=== PATIENT | male | born 1995 | race African-American/Black ===

== ENCOUNTER 2023-09-24 00:16 | Emergency (ER) | payer BC, SELFPAY ==
[2023-09-24 00:37] VITALS: BP 113/63; PULSE 81; RESP 16; TEMP 37.1; O2SAT 99; BMI 21.3
--- NOTE | 2023-09-24 01:09 | PC.NURSE ---
laceration, above left eye, laceration clean, bleeding controlled.
--- NOTE | 2023-09-24 01:36 | PC.NURSE ---
provider into assess and suture pt.
--- NOTE | 2023-09-24 01:40 | ED.WOUNDLAC ---
HPI - Wound/Laceration General Chief Complaint: Wound/Laceration Stated Complaint: lac on eyebrow Time Seen by Provider: 09/24/23 00:58 Source: patient Mode of arrival: ambulatory History of Present Illness HPI narrative: 27-year-old male who was walking his dog tripped going up the stairs and struck the left side of his head on the wooden step, denies any loss of consciousness. Related Data Allergies Allergy/AdvReac Type Severity Reaction Status Date / Time No Known Allergies Allergy Unverified 09/24/23 00:36 Review of Systems Review of Systems: Pertinent positives and negatives as stated in [facility] Past Medical History Source: nursing notes reviewed Physical Exam Vital Signs: Vital Signs: Last Vital Signs Temp 98.8 F 09/24/23 00:37 Pulse 81 09/24/23 00:37 Resp 16 09/24/23 00:37 BP 113/63 09/24/23 00:37 Pulse Ox 99 09/24/23 00:37 O2 Del Method Room Air 09/24/23 00:37 BMI result Body Mass Index 21.3 VITAL SIGNS: Reviewed. GENERAL: Well developed, well nourished, in no acute distress. HEAD: Normocephalic/atraumatic EYES: PERRLA, EOMI, 2 cm laceration to the superior aspect of the left upper lid, hemostatic EARS: Ext canals without abnormality LUNGS: Normal breath sounds. No adventitious sounds or accessory muscle use. SpO2<99> CARDIOVASCULAR: Regular rate and rhythm without noted murmurs ABDOMEN: Soft, non-tender, non-distended with bowel sounds. MUSCULOSKELETAL: No tenderness, deformities, or effusions noted on gross inspection. EXTREMITIES: No cyanosis, clubbing or edema. SKIN: Inspection of the skin reveals no rashes NEUROLOGIC: Alert and oriented x 4. Strength and sensation to light touch were grossly intact x 4. Medical Decision Making Medical Decision Making MDM Narrative: 27-year-old male with left upper eyelid laceration, repaired with 5-0 Prolene and then discharged home after receiving Tdap. Procedures Laceration Laceration 1: Site: other ( Left eyelid) Side (If applicable): left Size (cm): 2 Description: linear Depth: simple, single layer Local Anesthetic: lidocaine 1% Amount of anesthesia used (mL): 2 Pre-repair: wound explored, irrigated extensively and deep structures intact Skin layer closed with: other ( Prolene) Size (cm): 5-0 Number of sutures: 4 Technique: simple, interrupted Discharge Plan Discharge Clinical Impression: Laceration Patient Disposition: Home, Self-Care Instructions: Laceration (ED) Additional Instructions: 1. Tylenol and ibuprofen for pain control. 2. After 24 hours you may gently cleanse the area with soap and water and blot dry. You may apply antibiotic ointment. 3. You should have these 4 sutures removed at day 5
[2023-09-24 01:57] VITALS: BP 108/63; PULSE 69; RESP 16; O2SAT 99
--- NOTE | 2023-09-24 01:57 | PC.NURSE ---
pt sutured by provider, Reviewed discharge instructions with pt, pt verbalized understanding.
[2023-09-24] MEDS: Diphth,Pertus(ACell),Tet Adult 0.5 ML SYRINGE IM (02:02)
--- NOTE | 2023-09-24 02:06 | PC.NURSE ---
medicated per Mar, upon discharge. no sigh of distress.
== END 2023-09-24 02:07 | disposition home or self-care (01) ==
PROVIDERS: Emergency Provider Student in an Organized Health Care Education/Training Program
DX: S01.112A Laceration without foreign body of left eyelid and periocular area, initial encounter (principal); S00.212A Abrasion of left eyelid and periocular area, initial encounter; W01.0XXA Fall on same level from slipping, tripping and stumbling without subsequent striking against object, initial encounter; Y93.K1 Activity, walking an animal; Y92.9 Unspecified place or not applicable; Y99.9 Unspecified external cause status
CPT/HCPCS: 12011; 90471; 90715; 99284

== ENCOUNTER 2024-03-11 07:52 | Emergency (ER) | payer SELFPAY ==
[2024-03-11 07:59] VITALS: BMI 20.5
[2024-03-11 08:05] VITALS: BP 113/61; PULSE 85; RESP 18; TEMP 37.1; O2SAT 98
[2024-03-11 08:33] LABS: IDNOW Serial# 58CA691E; Strep A Nucleic Acid Positive (Negative)
--- NOTE | 2024-03-11 08:44 | ED.GENADULT ---
HPI - General Adult General Chief complaint: General Medical Stated complaint: sore throat Time Seen by Provider: 03/11/24 08:36 Source: patient Mode of arrival: ambulatory Limitations: no limitations History of Present Illness HPI narrative: This is a 28-year-old male presenting with fatigue, malaise, myalgia, sore throat, congestion x3 days patient reports he has had tonsillitis in the past and this feels similar. No known sick contacts. No changes in voice, drooling, fevers, chills, nausea, vomiting, abdominal pain, chest pain, shortness of breath. Related Data Previous Rx's ?Medication ?Instructions ?Recorded amoxicillin 875 mg-potassium 1 tab PO BID 7 days #14 tabs 03/11/24 clavulanate 125 mg tablet prednisone 20 mg tablet 40 mg (2 x 20 mg) PO DAILY 5 days 03/11/24 #10 tabs Allergies Allergy/AdvReac Type Severity Reaction Status Date / Time No Known Allergies Allergy Unverified 03/11/24 08:00 Review of Systems Review of Systems: Yes all other systems are reviewed and are negative [facility] Past Medical History Attestation statement: The following information was validated with the patient. Source: old records reviewed and nursing notes reviewed Social History Social History Advance Directives: No Advance Directives Information Provided: No Physical Exam ED Vital Signs: Vital Signs - 24 hr 03/11/24 08:05 03/11/24 09:12 Temperature 98.7 F 98.8 F Pulse Rate 85 85 Respiratory Rate 18 18 Blood Pressure 113/61 113/61 Pulse Oximetry 98 98 Oxygen Delivery Method Room Air Room Air BMI result Body Mass Index 20.5 vss Appearance: Alert.? Oriented X3.? No acute distress.? Head: Normocephalic, atraumatic, no step-offs or deformities Eyes: Pupils equal, round and reactive to light.? ENT: Pharynx b/l tonsils w/ swelling no exudates or abscess, uvula midline, speaking in full sentences controlling secretions well. Neck: Normal inspection.? Neck supple.? CVS: Normal heart rate and rhythm.? Pulses normal.? Respiratory: No respiratory distress.? Breath sounds normal.? Abdomen: Soft and nontender.? Skin: Skin warm and dry.? Normal skin color.? Normal skin turgor.? Extremities: No lower extremity edema.? No calf ttp. 5/5 strength to bilateral upper and lower extremities Neuro: Oriented X 3.? No motor deficit.? No sensory deficit. CN 2-12 intact Course Reevaluation(s) Reevaluation #1: Patient is strep positive. Will treat with Augmentin. Will also send prednisone Educated patient on diagnosis and treatment plan, answered all question, patient verbalizes understanding. At this time patient will be discharged home, advised to return with new or worsening symptoms. Educated on worrisome signs and symptoms and when to return. At this time I feel comfortable discharge home. Time: 08:52 Medical Decision Making Medical Decision Making [facility] Narrative: 0849 28-year-old male presents with sore throat, congestion x3 days. No sick contacts PE w/ b/l tonsils w/ swelling no exudates or abscess, uvula midline, speaking in full sentences controlling secretions well. History and physical exam concerning for strep throat versus viral illness versus flu versus COVID versus mononucleosis. Unlikely epiglottitis, threat to airway, peritonsillar or retropharyngeal abscess. No signs of acute distress or airway compromise Plan strep test. Differential Diagnosis Differential Diagnoses: The differential diagnosis associated with the presentation includes History and physical exam concerning for strep throat versus viral illness versus flu versus COVID versus mononucleosis. Unlikely epiglottitis, threat to airway, peritonsillar or retropharyngeal abscess. No signs of acute distress or airway compromise Admission/Observation Consideration of admission/observation: Escalation of care including admission/observation considered Possible Lab Data [facility] Lab Attestation statement: I reviewed the patient's lab results. Labs: Lab Results 03/11/24 Range/Units 08:18 S. pyogenes GrpA JOEL Positive A (Negative) Prescription Management I considered prescription management with: Antibiotic Critical Care Time Critical Care Time Critical Care Time: No Discharge Plan Discharge Clinical Impression: Strep throat Patient Disposition: Home, Self-Care Instructions: Strep Throat (ED) Additional Instructions: Take your medications as prescribed. If you were prescribed antibiotics today, it is important that you take your medication to their entirety, do not skip any doses, do not finish them early. Follow-up with your primary care provider this week. Return to the emergency department with new or worsening symptoms. Such as fevers, chills, chest pain, shortness of breath, nausea, vomiting, dizziness, headache, vision changes, lethargy In case of emergency call 911 Gargle with salt water 2 to 3 times a day. Throw away your toothbrush. Prescriptions: New amoxicillin-pot clavulanate 875-125 mg tablet 1 tab PO BID 7 Days Qty: 14 0RF prednisone 20 mg tablet 40 mg PO DAILY 5 Days Qty: 10 0RF Referrals: Physician,None [Primary Care Provider] - 2 days Interventions: ED Discharge Assessment Last Done: 03/11/24 09:12 Discharge Date/Time: 03/11/24 09:13 Print Language: Malagasy
[2024-03-11 09:12] VITALS: BP 113/61; PULSE 85; RESP 18; TEMP 37.1; O2SAT 98
== END 2024-03-11 09:13 | disposition home or self-care (01) ==
PROVIDERS: Emergency Provider Emergency Medicine
DX: J02.0 Streptococcal pharyngitis (principal)
CPT/HCPCS: 87651; 99283